=== PATIENT | male | born 1975 | race Caucasian/White ===

== ENCOUNTER 2025-05-26 20:36 | Emergency (ER) | payer OTHER, SELFPAY ==
[2025-05-26 20:41] VITALS: BP 120/74; PULSE 80; RESP 16; TEMP 36.9; O2SAT 98
[2025-05-26 20:44] VITALS: BP 120/74; PULSE 80; RESP 16; TEMP 36.9; O2SAT 98
[2025-05-26] MEDS: Normal Saline 100 ML (21:09)
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
[2025-05-26] MEDS: Amoxicillin 500 MG CAP PO (21:40)
[2025-05-26 21:46] VITALS: BP 146/89; PULSE 81; RESP 18; O2SAT 98
== END 2025-05-26 21:46 | disposition home or self-care (01) ==
LOC: ER 21:42
PROVIDERS: Emergency Provider Nurse Practitioner Family
DX: S02.5XXA Fracture of tooth (traumatic), initial encounter for closed fracture (principal); Y04.2XXA Assault by strike against or bumped into by another person, initial encounter
CPT/HCPCS: 99283 ×2